=== PATIENT | female | born 1935 ===

== ENCOUNTER → 2021-12-24 08:42 | Outpatient (CLI) | payer MEDICARE, SELFPAY ==
--- NOTE | ~2021-12-24 | MR_ITS ---
EXAMINATION: MR lumbar spine wo con DATE: 12/24/2021 10:33 INDICATION: Low back pain TECHNIQUE: Magnetic resonance imaging (MRI) of the lumbar spine was performed without intravenous con trast. Sequences included sagittal T2-weighted FSE, sagittal T2-weighted FS FSE, sagittal T1-weighted FSE, and axial T2-weighted FSE. COMPARISON: None FINDINGS: 17 degree lumbar levoscoliosis. Vertebral body heights are normal. Severe disc height loss at L1-L2 a nd moderate to severe right-sided predominant disc height loss at L2-L3 and L3-L4. There are associat ed degenerative endplate changes with mild fibrovascular and fibrofatty endplate changes at the sites of most severe disc height loss. Marrow signal is otherwise normal. Additional moderate disc height loss at T12-L1, mild to moderate disc height loss at L5-S1 and mild disc height loss at L4-L5. There are annular fissures at each of the levels from T12-L1 through L5-S1. The conus medullaris terminates at L1-L2. There is normal signal in the caudal spinal cord. Paravertebral soft tissues are unremarka ble. Prominent dilation of the visualized portion common bile duct which measures up to 1.7 cm in max imal diameter. There is some associated biliary ductal dilation in the visualized posterior medial as pect of the right hepatic lobe. The following disc levels are specifically discussed: T12-L1: Disc is bulging. 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 There is mild left n eural foraminal stenosis. There is mild central canal stenosis. L1-L2: Disc is bulging. There is mild right and no left facet joint osteoarthritis. There is moderate left and mild to moderate right neural foraminal stenosis. There is mild central canal stenosis. L2-L3: Disc is bulging. There is mild left and moderate to severe right facet joint osteoarthritis. T here is mild left and mild to moderate right neural foraminal stenosis. There is mild to moderate arun tral canal stenosis. L3-L4: Disc is bulging. There is severe right and mild to moderate left facet joint osteoarthritis. T here is moderate right and mild left neural foraminal stenosis. There is mild central canal stenosis. L4-L5: Disc is bulging. There is severe bilateral facet joint osteoarthritis. There is mild right and moderate left neural foraminal stenosis. There is mild central canal stenosis with narrowing of the left and right lateral recesses. L5-S1: Disc is bulging. There is hypertrophy of the ligamentum flavum. There is severe left and mild to moderate right facet joint osteoarthritis. There is moderate left and mild to moderate right neura l foraminal stenosis. There is minimal central canal stenosis but with narrowing of the left and righ t lateral recesses. IMPRESSION: 1. 17 degrees lumbar levoscoliosis with severe spondylosis. 2. Prominent intra and extra hepatic biliary ductal dilation. Correlate with liver function tests. Reviewed, dictated and finalized at location A. IMPRESSION: 1. 17 degrees lumbar levoscoliosis with severe spondylosis. 2. Prominent intra and extra hepatic biliary ductal dilation. Correlate with li verónica function tests.
== END ==
PROVIDERS: PCP Family Medicine; Visit Provider Family Medicine
DX: M54.50 Low back pain, unspecified (principal); M47.896 Other spondylosis, lumbar region
CPT/HCPCS: 72148